=== PATIENT | female | born 1985 | race Caucasian/White ===

== ENCOUNTER 2017-03-18 14:14 | Emergency (ER) | payer MEDICARE, MEDICAID ==
--- NOTE | 2017-03-18 15:43 | UC ---
Lower Extremity/Ankle HPI - HPI Summary HPI Summary: 31 year old female presents with complains of right ankle pain after fall. - History of Current Complaint Stated Complaint: RT FOOT INJ Time Seen by Provider: 03/18/17 15:42 Hx Obtained From: Patient Onset/Duration: Sudden Onset Severity Initially: Moderate Severity Currently: Moderate Pain Scale Used: 0-10 Numeric - 5 Aggravating Factor(s): Standing Alleviating Factor(s): Elevation - Allergies/Home Medications Allergies/Adverse Reactions: Allergies Allergy/AdvReac Type Severity Reaction Status Date / Time No Known Allergies Allergy Verified 03/18/17 15:50 Home Medications: Home Medications Diazepam TAB(*) [Valium TAB(*)] 5 mg PO BID 03/18/17 [History Confirmed 03/18/17 ] PMH/Surg Hx/FS Hx/Imm Hx Previously Healthy: Yes - Surgical History Surgical History: Unable to Obtain/Confirm - Family History Known Family History: Positive: Unknown - Social History Alcohol Use: None Substance Use Type: None Smoking Status (MU): Never Smoked Tobacco Have You Smoked in the Last Year: No Review of Systems Constitutional: Negative Skin: Negative Eyes: Negative ENT: Negative Respiratory: Negative Cardiovascular: Negative Gastrointestinal: Negative Genitourinary: Negative Motor: Negative Neurovascular: Negative Musculoskeletal: Negative Neurological: Negative Psychological: Negative All Other Systems Reviewed And Are Negative: Yes Physical Exam Triage Information Reviewed: Yes Appearance: Well-Appearing Vital Signs Reviewed: Yes Eye Exam: Normal ENT Exam: Normal Dental Exam: Normal Neck exam: Normal Neck: Positive: 1 Respiratory Exam: Normal Cardiovascular Exam: Normal Abdominal Exam: Normal Musculoskeletal: Positive: Other: - right ankle pain Neurological Exam: Normal Psychological Exam: Normal Skin Exam: Normal Lower Extremity Course/Dx - Differential Dx/Diagnosis Provider Diagnoses: right ankle fracture. right ankle pain Discharge - Discharge Plan Condition: Stable Disposition: HOME Patient Education Materials: Ankle Fracture (ED) Referrals: Darius Heller MD [Medical Doctor] - Sundar Garcia MD [Primary Care Provider] -
--- NOTE | 2017-03-18 16:28 | RAD ---
INDICATION: Right ankle injury. TECHNIQUE: 3 views of the right ankle were obtained. FINDINGS: There is diffuse soft tissue swelling which is most prominent along the anterolateral aspect of the ankle. There is an oblique nondisplaced intra-articular fracture of the distal fibula. No other fractures are seen. IMPRESSION: OBLIQUE NONDISPLACED INTRA-ARTICULAR FRACTURE OF THE DISTAL FIBULA.
--- NOTE | 2017-03-18 16:30 | RAD ---
INDICATION: Right foot injury. TECHNIQUE: 3 views of the right foot were obtained. FINDINGS: There is diffuse soft tissue swelling in the mid and hindfoot. Again note is made of an oblique fracture of the distal fibula. No additional fracture is seen. Joint spaces appear maintained. IMPRESSION: SOFT TISSUE SWELLING, NO ADDITIONAL FRACTURE IS SEEN.
== END 2017-03-18 17:01 | disposition home or self-care (01) ==
LOC: UCCORT 14:14
DX: S82.891A Other fracture of right lower leg, initial encounter for closed fracture (principal); M25.571 Pain in right ankle and joints of right foot; W19.XXXA Unspecified fall, initial encounter; Y92.9 Unspecified place or not applicable
CPT/HCPCS: 99213; G0463